=== PATIENT | female | born 1945 ===

== ENCOUNTER 2021-06-12 09:33 | Inpatient (IN) | payer OTHER ==
[~2021-06-12] VITALS: Ht 165.1 cm; Wt 56.9 kg
[2021-06-12] MEDS ORDERED: dilTIAZem 25 MG/5 ML VIAL IV ONE ×2 (11:10→11:15)
[2021-06-12] MEDS: dilTIAZem 125mg/125ml BAG KIT 100 ML IV SCH (11:45)
[2021-06-12 11:51] LABS: Albumin 2.6 g/dL (3.4-5.0); Calcium 7.2 mg/dL (8.5-10.1)
[2021-06-12 11:53] LABS: Basophils # (auto) 0.1 10 ^3/uL (0-0.2); Basophils % (auto) 1.7 % (0.0-2.0); Eosinophils # (auto) 0 10 ^3/uL (0-0.8); Eosinophils % (auto) 0.4 % (0.0-7.0); Hematocrit 46.6 % (36.0-46.0); Hemoglobin 15.6 g/dL (12.2-16.2); Lymphocytes # (auto) 0.7 10 ^3/uL (0.4-5.4); Lymphocytes % (auto) 14.9 % (10.0-50.0); Mean Corpuscular Hemoglobin 30.7 pg (28.0-32.0); Mean Corpuscular Hgb Conc. 33.4 g/dL (32.0-36.0); Mean Corpuscular Volume 91.8 fL (80.0-100.0); Monocytes # (auto) 0.5 10 ^3/uL (0-1.3); Monocytes % (auto) 11.9 % (0.0-12.0); Neutrophils # (auto) 3.2 10 ^3/uL (1.6-8.6); Neutrophils % (auto) 71.1 % (37.0-80.0); Nucleated Red Blood Cells % 0.2 %; Red Blood Cells 5.08 10^6/uL (4.0-5.20); Red Cell Distribution Width 13.8 % (11.8-14.3); White Blood Cell 4.5 10^3/uL (4.4-10.8)
[2021-06-12 11:56] LABS: BUN/Creatinine Ratio 16.7; Bilirubin, Total 0.4 mg/dL (0.2-1.0); Total Protein 6.5 g/dL (6.4-8.2)
[2021-06-12 12:22] LABS: Potassium 3.8 mmol/L (3.5-5.1)
[2021-06-12 16:08] LABS: Urine Bacteria FEW /hpf (None Seen); Urine Blood Negative /uL (Negative); Urine Hyaline Cast MOD /lpf (0 - 2); Urine Mucus FEW (None Seen); Urine Specific Gravity 1.011 (1.001-1.035); Urine WBC 3 /hpf (0 - 5)
[2021-06-12] MEDS ORDERED: MORPHINE SULFATE INJECTION 2 MG/ML SYRG IV PRN ×2 (16:30→17:00)
[2021-06-12] MEDS ORDERED: NITROGLYCERIN 0.4 MG SL TAB SL PRN ×2 (16:30→17:00)
[2021-06-12] MEDS ORDERED: CALCIUM W/VIT D (600MG/400IU) TAB PO ONE (16:45)
[2021-06-12] MEDS ORDERED: SODIUM CHLORIDE 0.9% 1,000 ML IV ONE (16:45)
[2021-06-12] MEDS ORDERED: IPRATROPIUM BROM 0.5 MG/2.5ML INH SOL NEB ONE (16:45)
[2021-06-12] MEDS ORDERED: ENOXAPARIN SOD 60 MG/0.6 ML SYRINGE SC ONE (16:45)
[2021-06-12] MEDS ORDERED: ACETAMINOPHEN 500 MG TAB PO PRN (17:00)
[2021-06-12] MEDS ORDERED: ALUM & MAG HYDROX-SIMETH LIQ(MAALOX) 30 ML PO PRN (17:00)
[2021-06-12] MEDS ORDERED: LORazepam 0.5 MG TAB PO PRN (17:00)
[2021-06-12] MEDS ORDERED: METOCLOPRAMIDE HCL 5MG/ml INJ 2ml VIAL IV PRN (17:00)
[2021-06-12] MEDS: SODIUM CHLORIDE 0.9% 1,000 ML IV SCH (17:59)
[2021-06-12] MEDS: ZINC SULFATE 220mg CAP or TAB PO SCH (18:00)
[2021-06-12] MEDS: DexAMETHasone SOD PHOS 10MG/1ML VIAL INJ IV SCH (18:00)
[2021-06-12] MEDS: CHOLECALCIFEROL (VITD3) 2,000 UNIT CAP/TAB PO SCH (18:00)
[2021-06-12] MEDS: CALCIUM W/VIT D (600MG/400IU) TAB PO SCH (18:00)
[2021-06-12] MEDS: ASCORBIC ACID 1,000 MG TAB PO SCH (18:00)
[2021-06-12] MEDS ORDERED: IPRATROPIUM BROM 0.5 MG/2.5ML INH SOL NEB SCH (18:00)
[2021-06-12 18:10] LABS: Amphetamine Screen, Urine NEGATIVE (NEGATIVE); Barbiturate Scree,Urine NEGATIVE (NEGATIVE); Benzodiazephine Screen, Urine NEGATIVE (NEGATIVE); Cannabinoid Screen, Urine NEGATIVE (NEGATIVE); Cocaine Screen, Urine NEGATIVE (NEGATIVE); Opiate Scree,Urine NEGATIVE (NEGATIVE); Phencyclidine Screen, Urine NEGATIVE (NEGATIVE)
[2021-06-12] MEDS: BUDESONIDE (INHALATION) 180 MCG IH IN SCH (22:00)
[2021-06-12 22:31] LABS: Potassium 3.7 mmol/L (3.5-5.1)
[2021-06-12 22:32] LABS: BUN/Creatinine Ratio 23.1; Calcium 7.9 mg/dL (8.5-10.1)
[2021-06-12 22:33] LABS: Albumin 2.7 g/dL (3.4-5.0); Bilirubin, Total 0.3 mg/dL (0.2-1.0); Total Protein 6.8 g/dL (6.4-8.2)
[2021-06-12] MEDS: ATORVASTATIN 20 MG TAB PO SCH (22:38)
[2021-06-12 22:46] LABS: CRP High Sensitivity 1.83 mg/dL (< 0.3)
[2021-06-12 22:51] LABS: Thyroid Stimulating Hormone 0.18 uIU/mL (0.358-3.74)
[2021-06-12] MEDS: DOXYCYCLINE 100MG/250ML 250 ML IV SCH (22:51)
[2021-06-13] MEDS: SODIUM CHLORIDE 0.9% 1,000 ML IV SCH ×2 (06:05→09:34)
[2021-06-13] MEDS: dilTIAZem 125mg/125ml BAG KIT 100 ML IV SCH (07:15)
[2021-06-13 07:54] LABS: Basophils # (auto) 0 10 ^3/uL (0-0.2); Basophils % (auto) 0.2 % (0.0-2.0); Eosinophils # (auto) 0 10 ^3/uL (0-0.8); Hematocrit 45.6 % (36.0-46.0); Hemoglobin 14.9 g/dL (12.2-16.2); Lymphocytes # (auto) 0.8 10 ^3/uL (0.4-5.4); Lymphocytes % (auto) 22.7 % (10.0-50.0); Mean Corpuscular Hgb Conc. 32.6 g/dL (32.0-36.0); Mean Corpuscular Volume 91.9 fL (80.0-100.0); Monocytes # (auto) 0.3 10 ^3/uL (0-1.3); Monocytes % (auto) 7.6 % (0.0-12.0); Neutrophils # (auto) 2.3 10 ^3/uL (1.6-8.6); Neutrophils % (auto) 69.5 % (37.0-80.0); Nucleated Red Blood Cells % 0.1 %; Red Blood Cells 4.96 10^6/uL (4.0-5.20); Red Cell Distribution Width 14.4 % (11.8-14.3); White Blood Cell 3.3 10^3/uL (4.4-10.8)
[2021-06-13] MEDS: CALCIUM W/VIT D (600MG/400IU) TAB PO SCH ×2 (08:00→11:53)
[2021-06-13 08:05] LABS: Potassium 3.8 mmol/L (3.5-5.1)
[2021-06-13 08:11] LABS: BUN/Creatinine Ratio 33.3; Bilirubin, Total 0.4 mg/dL (0.2-1.0); Phosphorus 3.6 mg/dL (2.5-4.90); Total Protein 5.7 g/dL (6.4-8.2); Uric Acid 4.5 mg/dL (2.6-6.0)
[2021-06-13 08:24] LABS: INR 0.99 (0.9-1.15); Partial Thromboplastin Time 36.5 sec (23.6-33.0)
[2021-06-13] MEDS: ASCORBIC ACID 1,000 MG TAB PO SCH (09:44)
[2021-06-13] MEDS: ZINC SULFATE 220mg CAP or TAB PO SCH (09:44)
[2021-06-13] MEDS: ASPirin 81 mg TAB PO SCH (09:44)
[2021-06-13] MEDS: DOXYCYCLINE 100MG/250ML 250 ML IV SCH ×2 (09:54→21:31)
[2021-06-13] MEDS: APIXABAN 5 MG TAB PO SCH ×2 (10:17→21:31)
[2021-06-13] MEDS: DexAMETHasone SOD PHOS 10MG/1ML VIAL INJ IV SCH (10:17)
[2021-06-13] MEDS: CHOLECALCIFEROL (VITD3) 2,000 UNIT CAP/TAB PO SCH (10:17)
[2021-06-13] MEDS: BUDESONIDE (INHALATION) 180 MCG IH IN SCH ×2 (11:23→22:22)
[2021-06-13] MEDS: ALBUTEROL SULF HFA 90MCG INH 200DOSE IN PRN ×2 (11:28→22:22)
[2021-06-13] MEDS: HYDROcodone-ACET 5/325MG TAB PO PRN ×2 (18:53→23:28)
[2021-06-13] MEDS: ATORVASTATIN 20 MG TAB PO SCH (21:31)
[2021-06-14] MEDS: dilTIAZem 125mg/125ml BAG KIT 100 ML IV SCH ×2 (00:31→23:15)
[2021-06-14] MEDS: HYDROcodone-ACET 5/325MG TAB PO PRN (05:51)
[2021-06-14] MEDS: BUDESONIDE (INHALATION) 180 MCG IH IN SCH ×2 (06:50→18:51)
[2021-06-14] MEDS: ALBUTEROL SULF HFA 90MCG INH 200DOSE IN PRN ×2 (06:56→18:51)
[2021-06-14] MEDS: CALCIUM W/VIT D (600MG/400IU) TAB PO SCH ×2 (08:00→19:10)
[2021-06-14] MEDS: SODIUM CHLORIDE 0.9% 1,000 ML IV SCH ×2 (08:35→21:20)
[2021-06-14] MEDS: ASPirin 81 mg TAB PO SCH (09:32)
[2021-06-14] MEDS: DOXYCYCLINE 100MG/250ML 250 ML IV SCH ×2 (09:32→22:17)
[2021-06-14] MEDS: DexAMETHasone SOD PHOS 10MG/1ML VIAL INJ IV SCH (09:32)
[2021-06-14] MEDS: APIXABAN 5 MG TAB PO SCH ×2 (09:33→22:18)
[2021-06-14] MEDS: ASCORBIC ACID 1,000 MG TAB PO SCH (09:33)
[2021-06-14] MEDS: CHOLECALCIFEROL (VITD3) 2,000 UNIT CAP/TAB PO SCH (09:33)
[2021-06-14] MEDS: ZINC SULFATE 220mg CAP or TAB PO SCH (09:33)
[2021-06-14] MEDS ORDERED: REMDESIVIR PER PHARMACY 0 ML IV SCH (10:45)
[2021-06-14] MEDS: METOPROLOL TARTRATE 25 MG TAB PO SCH ×2 (13:10→22:17)
[2021-06-14] MEDS ORDERED: REMDESIVIR 200 MG in NS 210ml LOADING DOSE ADULT IV ONE (15:00)
[2021-06-14] MEDS: MORPHINE SULFATE INJECTION 2 MG/ML SYRG IV PRN ×2 (16:30→22:18)
[2021-06-14 21:20] VITALS: BP 143/95
[2021-06-14] MEDS: ATORVASTATIN 20 MG TAB PO SCH (22:17)
[2021-06-15] MEDS ORDERED: LOSA-69 PO (04:22)
[2021-06-15] MEDS ORDERED: PERCOT PO (04:22)
[2021-06-15] MEDS ORDERED: DIPH25CA66 PO (04:22)
[2021-06-15] MEDS: MORPHINE SULFATE INJECTION 2 MG/ML SYRG IV PRN ×3 (05:22→18:54)
[2021-06-15 07:08] LABS: Potassium 4.2 mmol/L (3.5-5.1)
[2021-06-15 07:12] LABS: Albumin 2.6 g/dL (3.4-5.0); BUN/Creatinine Ratio 46.4; Calcium 8.8 mg/dL (8.5-10.1)
[2021-06-15 07:15] LABS: Bilirubin, Total 0.3 mg/dL (0.2-1.0); Total Protein 5.9 g/dL (6.4-8.2)
[2021-06-15 08:30] VITALS: BP 145/85
[2021-06-15] MEDS: BUDESONIDE (INHALATION) 180 MCG IH IN SCH ×2 (09:51→19:40)
[2021-06-15] MEDS: CHOLECALCIFEROL (VITD3) 2,000 UNIT CAP/TAB PO SCH (10:08)
[2021-06-15] MEDS: APIXABAN 5 MG TAB PO SCH ×2 (10:08→21:04)
[2021-06-15] MEDS: DexAMETHasone SOD PHOS 10MG/1ML VIAL INJ IV SCH (10:08)
[2021-06-15] MEDS: ASCORBIC ACID 1,000 MG TAB PO SCH (10:08)
[2021-06-15] MEDS: ZINC SULFATE 220mg CAP or TAB PO SCH (10:08)
[2021-06-15] MEDS: ASPirin 81 mg TAB PO SCH (10:08)
[2021-06-15] MEDS: CALCIUM W/VIT D (600MG/400IU) TAB PO SCH ×2 (10:08→17:26)
[2021-06-15] MEDS: DOXYCYCLINE 100MG/250ML 250 ML IV SCH (10:08)
[2021-06-15] MEDS: METOPROLOL TARTRATE 25 MG TAB PO SCH ×2 (10:09→21:06)
[2021-06-15] MEDS: SODIUM CHLORIDE 0.9% 1,000 ML IV SCH (11:25)
[2021-06-15 12:30] VITALS: BP 149/98
[2021-06-15 14:22] LABS: Folate (Folic Acid) 12.14 ng/mL (5.38-24)
[2021-06-15] MEDS: REMDESIVIR 100mg 100 MG in SODIUM CHL 0.9% 230 ML IV SCH (15:20)
[2021-06-15] MEDS: levoFLOXacin 500MG 100 ML IV SCH (16:28)
[2021-06-15 17:00] VITALS: BP 134/85
[2021-06-15] MEDS: dilTIAZem 125mg/125ml BAG KIT 100 ML IV SCH (19:15)
[2021-06-15] MEDS: ALBUTEROL SULF HFA 90MCG INH 200DOSE IN PRN (20:45)
[2021-06-15] MEDS: ATORVASTATIN 20 MG TAB PO SCH (21:05)
[2021-06-15 22:00] VITALS: BP 145/89
[2021-06-15] MEDS: HYDROcodone-ACET 5/325MG TAB PO PRN (22:47)
[2021-06-16] MEDS: SODIUM CHLORIDE 0.9% 1,000 ML IV SCH ×2 (01:15→14:05)
[2021-06-16] MEDS: MORPHINE SULFATE INJECTION 2 MG/ML SYRG IV PRN ×2 (01:40→20:14)
[2021-06-16 05:00] VITALS: BP 156/98
[2021-06-16] MEDS: BUDESONIDE (INHALATION) 180 MCG IH IN SCH ×2 (05:58→22:43)
[2021-06-16] MEDS: ALBUTEROL SULF HFA 90MCG INH 200DOSE IN PRN (05:59)
[2021-06-16 07:00] LABS: Basophils # (auto) 0 10 ^3/uL (0-0.2); Basophils % (auto) 0.2 % (0.0-2.0); Eosinophils # (auto) 0 10 ^3/uL (0-0.8); Hematocrit 42.9 % (36.0-46.0); Hemoglobin 14.7 g/dL (12.2-16.2); Lymphocytes # (auto) 0.6 10 ^3/uL (0.4-5.4); Lymphocytes % (auto) 5.8 % (10.0-50.0); Mean Corpuscular Hemoglobin 31.2 pg (28.0-32.0); Mean Corpuscular Hgb Conc. 34.2 g/dL (32.0-36.0); Mean Corpuscular Volume 91.1 fL (80.0-100.0); Monocytes % (auto) 9.3 % (0.0-12.0); Neutrophils # (auto) 8.9 10 ^3/uL (1.6-8.6); Neutrophils % (auto) 84.7 % (37.0-80.0); Nucleated Red Blood Cells % 0.1 %; Red Blood Cells 4.71 10^6/uL (4.0-5.20); Red Cell Distribution Width 13.8 % (11.8-14.3); White Blood Cell 10.5 10^3/uL (4.4-10.8)
[2021-06-16 07:22] LABS: Albumin 2.5 g/dL (3.4-5.0); Calcium 8.4 mg/dL (8.5-10.1); Potassium 4.5 mmol/L (3.5-5.1)
[2021-06-16 07:29] LABS: Bilirubin, Total 0.4 mg/dL (0.2-1.0); Total Protein 5.8 g/dL (6.4-8.2)
[2021-06-16 09:00] VITALS: BP 149/81
[2021-06-16] MEDS: levoFLOXacin 500MG 100 ML IV SCH (09:55)
[2021-06-16] MEDS: DexAMETHasone SOD PHOS 10MG/1ML VIAL INJ IV SCH (09:55)
[2021-06-16] MEDS: ASPirin 81 mg TAB PO SCH (09:55)
[2021-06-16] MEDS: METOPROLOL TARTRATE 25 MG TAB PO SCH ×2 (09:56→20:46)
[2021-06-16] MEDS: CALCIUM W/VIT D (600MG/400IU) TAB PO SCH ×2 (09:56→17:50)
[2021-06-16] MEDS: APIXABAN 5 MG TAB PO SCH ×2 (09:56→20:47)
[2021-06-16] MEDS: ASCORBIC ACID 1,000 MG TAB PO SCH (09:56)
[2021-06-16] MEDS: ZINC SULFATE 220mg CAP or TAB PO SCH (09:56)
[2021-06-16] MEDS: CHOLECALCIFEROL (VITD3) 2,000 UNIT CAP/TAB PO SCH (09:56)
[2021-06-16] MEDS: DOCUSATE SOD 100 MG CAP PO PRN (10:11)
[2021-06-16 13:00] VITALS: BP 140/82
[2021-06-16] MEDS: REMDESIVIR 100mg 100 MG in SODIUM CHL 0.9% 230 ML IV SCH (15:15)
[2021-06-16] MEDS: dilTIAZem 125mg/125ml BAG KIT 100 ML IV SCH (15:15)
[2021-06-16 17:00] VITALS: BP 139/92
[2021-06-16] MEDS: ATORVASTATIN 20 MG TAB PO SCH (20:46)
[2021-06-16 22:00] VITALS: BP 142/95
[2021-06-17] MEDS: ALBUTEROL SULF HFA 90MCG INH 200DOSE IN PRN ×2 (00:45→09:06)
[2021-06-17] MEDS: SODIUM CHLORIDE 0.9% 1,000 ML IV SCH (04:36)
[2021-06-17] MEDS: MORPHINE SULFATE INJECTION 2 MG/ML SYRG IV PRN ×4 (04:50→21:05)
[2021-06-17 05:48] VITALS: BP 150/89
[2021-06-17 06:49] LABS: Potassium 4.3 mmol/L (3.5-5.1)
[2021-06-17 06:56] LABS: Albumin 2.3 g/dL (3.4-5.0); BUN/Creatinine Ratio 42.9; Bilirubin, Total 0.3 mg/dL (0.2-1.0); Calcium 8.2 mg/dL (8.5-10.1); Total Protein 5.3 g/dL (6.4-8.2)
[2021-06-17] MEDS: CALCIUM W/VIT D (600MG/400IU) TAB PO SCH ×2 (08:00→17:43)
[2021-06-17] MEDS: BUDESONIDE (INHALATION) 180 MCG IH IN SCH ×2 (08:10→20:01)
[2021-06-17 08:50] VITALS: BP 128/72
[2021-06-17] MEDS: ASPirin 81 mg TAB PO SCH (09:32)
[2021-06-17] MEDS: levoFLOXacin 500MG 100 ML IV SCH (09:32)
[2021-06-17] MEDS: CHOLECALCIFEROL (VITD3) 2,000 UNIT CAP/TAB PO SCH (09:32)
[2021-06-17] MEDS: ZINC SULFATE 220mg CAP or TAB PO SCH (09:32)
[2021-06-17] MEDS: APIXABAN 5 MG TAB PO SCH ×2 (09:32→21:03)
[2021-06-17] MEDS: ASCORBIC ACID 1,000 MG TAB PO SCH (09:32)
[2021-06-17] MEDS: dilTIAZem 125mg/125ml BAG KIT 100 ML IV SCH (09:32)
[2021-06-17] MEDS: DexAMETHasone SOD PHOS 10MG/1ML VIAL INJ IV SCH (09:32)
[2021-06-17] MEDS: METOPROLOL TARTRATE 25 MG TAB PO SCH ×2 (09:33→21:04)
[2021-06-17] MEDS: DOCUSATE SOD 100 MG CAP PO PRN (11:01)
[2021-06-17 12:52] VITALS: BP 124/87
[2021-06-17] MEDS: REMDESIVIR 100mg 100 MG in SODIUM CHL 0.9% 230 ML IV SCH (15:14)
[2021-06-17 17:00] VITALS: BP 130/64
[2021-06-17] MEDS: ATORVASTATIN 20 MG TAB PO SCH (21:03)
[2021-06-17 22:00] VITALS: BP 113/63
[2021-06-18] MEDS: MORPHINE SULFATE INJECTION 2 MG/ML SYRG IV PRN ×2 (01:40→13:02)
[2021-06-18] MEDS: ALBUTEROL SULF HFA 90MCG INH 200DOSE IN PRN ×2 (01:59→08:39)
[2021-06-18 05:00] VITALS: BP 141/81
[2021-06-18] MEDS: DOCUSATE SOD 100 MG CAP PO PRN (05:42)
[2021-06-18 06:40] VITALS: BP 134/94
[2021-06-18] MEDS: dilTIAZem 125mg/125ml BAG KIT 100 ML IV SCH (07:15)
[2021-06-18] MEDS: BUDESONIDE (INHALATION) 180 MCG IH IN SCH (08:39)
[2021-06-18 09:00] VITALS: BP 145/87
[2021-06-18] MEDS: DexAMETHasone SOD PHOS 10MG/1ML VIAL INJ IV SCH (09:56)
[2021-06-18] MEDS: ZINC SULFATE 220mg CAP or TAB PO SCH (09:56)
[2021-06-18] MEDS: ASPirin 81 mg TAB PO SCH (09:56)
[2021-06-18] MEDS: CALCIUM W/VIT D (600MG/400IU) TAB PO SCH (09:56)
[2021-06-18] MEDS: APIXABAN 5 MG TAB PO SCH (09:56)
[2021-06-18] MEDS: levoFLOXacin 500MG 100 ML IV SCH (09:56)
[2021-06-18] MEDS: METOPROLOL TARTRATE 25 MG TAB PO SCH (10:06)
[2021-06-18] MEDS: CHOLECALCIFEROL (VITD3) 2,000 UNIT CAP/TAB PO SCH (10:06)
[2021-06-18] MEDS: ASCORBIC ACID 1,000 MG TAB PO SCH (10:06)
[2021-06-18] MEDS ORDERED: MET25T PO (10:19)
[2021-06-18] MEDS ORDERED: APIX5TAB PO (10:19)
[2021-06-18] MEDS ORDERED: LEVO500T31 PO (10:19)
[2021-06-18] MEDS ORDERED: SENNA 8.6 MG TAB PO SCH (10:30)
[2021-06-18] MEDS: LACTULOSE 20Gm/30ML SOLN PO SCH ×2 (11:17→13:02)
[2021-06-18] MEDS: REMDESIVIR 100mg 100 MG in SODIUM CHL 0.9% 230 ML IV SCH (14:55)
[2021-06-18 15:21] VITALS: BP 145/87
== END 2021-06-18 16:30 | disposition home health service (06) | DRG 177 ==
LOC: ER 09:33 → EDBD 09:33 → OVERFLOW 16:46 → TELE-EAST 06-14 21:10
PROVIDERS: ADMIT Hospitalist; ATTEND Internal Medicine
PROC: XW033E5 Introduction of Remdesivir Anti-infective into Peripheral Vein, Percutaneous Approach, New Technology Group 5 (ICD-10-PCS; principal; 2021-06-14)
DX: U07.1 COVID-19 (principal); J96.01 Acute respiratory failure with hypoxia; J12.82 Pneumonia due to coronavirus disease 2019; E87.2 Acidosis; N39.0 Urinary tract infection, site not specified; J44.0 Chronic obstructive pulmonary disease with (acute) lower respiratory infection; R62.7 Adult failure to thrive; E88.09 Other disorders of plasma-protein metabolism, not elsewhere classified; D72.819 Decreased white blood cell count, unspecified; I25.10 Atherosclerotic heart disease of native coronary artery without angina pectoris; B96.20 Unspecified Escherichia coli [E. coli] as the cause of diseases classified elsewhere; B96.5 Pseudomonas (aeruginosa) (mallei) (pseudomallei) as the cause of diseases classified elsewhere; E78.5 Hyperlipidemia, unspecified; F17.200 Nicotine dependence, unspecified, uncomplicated; I10 Essential (primary) hypertension; I48.91 Unspecified atrial fibrillation; R79.89 Other specified abnormal findings of blood chemistry; Z23 Encounter for immunization; Z79.01 Long term (current) use of anticoagulants; Z88.0 Allergy status to penicillin; Z88.2 Allergy status to sulfonamides; Z88.1 Allergy status to other antibiotic agents
CPT/HCPCS: 36415; 70450; 71045; 80053; 80307; 81001; 82306; 82607; 82728; 82746; 83036; 83605; 83615; 83735; 83880; 84100; 84443; 84484; 84550; 85025; 85379; 85610; 85730; 86141; 87040; 87086; 87088; 87186; 87426; 93005; 93306; 93886; 94640; 96374; 97110; 97116; 97163; 97530; 99291; G0378; J1100; J1956; J3490

== ENCOUNTER 2021-09-26 10:02 | Inpatient (IN) | payer OTHER ==
[~2021-09-26] VITALS: Ht 165.1 cm; Wt 65.5 kg
[~2021-09-26 10:02] MED LIST: APIX5TAB PO; DIPH25CA66 PO; LEVO500T31 PO; LOSA-69 PO; MET25T PO; PERCOT PO
[2021-09-26] MEDS ORDERED: HEPARIN SODIUM (PORCINE) 5000 UNITS/ML 1ML VIAL ONE (10:07)
[2021-09-26] MEDS ORDERED: HEPARIN SODIUM (PORCINE) 5000 UNITS/ML 1ML VIAL IV ONE (10:15)
[2021-09-26] MEDS ORDERED: fentaNYL CITRATE 100 MCG/2 ML VL ONE (10:24)
[2021-09-26] MEDS ORDERED: VERAPAMIL 2.5MG/ML INJ 2ML VIAL IV ONE (10:24)
[2021-09-26] MEDS ORDERED: ANGIOMAX 250 MG VIAL IV ONE (10:25)
[2021-09-26] MEDS ORDERED: SODIUM CHL 0.9% 50 ML ONE (10:25)
[2021-09-26] MEDS ORDERED: MIDAZOLAM HCL 2MG/2ML 2ml VIAL (1mg/ml) ONE (10:25)
[2021-09-26] MEDS ORDERED: ATROPINE SULF 1 MG/10ml SYR ONE (10:25)
[2021-09-26] MEDS ORDERED: IODIXANOL 320MG/ML 100ML BTL IV ONE ×2 (10:29→10:53)
[2021-09-26] MEDS ORDERED: LIDOCAINE 2%HCL (LOCAL ANESTH.) INJ 20ML MDV ONE (10:29)
[2021-09-26] MEDS ORDERED: ONDANSETRON HCL 4 MG/2 ML VIAL IV ONE (10:30)
[2021-09-26] MEDS ORDERED: MORPHINE SULFATE 4 MG/ML SYR/VIAL IV ONE (10:30)
[2021-09-26] MEDS ORDERED: METOPROLOL TARTRATE 50 MG TAB PO ONE (10:45)
[2021-09-26] MEDS ORDERED: NITROGLYCERIN 0.4 MG SL TAB SL PRN ×2 (10:45→12:00)
[2021-09-26 10:47] LABS: Basophils # (auto) 0.1 10 ^3/uL (0-0.2); Basophils % (auto) 1.1 % (0.0-2.0); Eosinophils # (auto) 0.3 10 ^3/uL (0-0.8); Hematocrit 43.5 % (36.0-46.0); Hemoglobin 14.3 g/dL (12.2-16.2); Lymphocytes # (auto) 2.2 10 ^3/uL (0.4-5.4); Mean Corpuscular Hemoglobin 30.6 pg (28.0-32.0); Mean Corpuscular Hgb Conc. 32.9 g/dL (32.0-36.0); Monocytes # (auto) 0.7 10 ^3/uL (0-1.3); Monocytes % (auto) 8.6 % (0.0-12.0); Neutrophils # (auto) 4.5 10 ^3/uL (1.6-8.6); Neutrophils % (auto) 58.3 % (37.0-80.0); Nucleated Red Blood Cells % 0.1 %; Red Blood Cells 4.68 10^6/uL (4.0-5.20); Red Cell Distribution Width 14.8 % (11.8-14.3); White Blood Cell 7.7 10^3/uL (4.4-10.8)
[2021-09-26 10:57] LABS: Albumin 3.5 g/dL (3.4-5.0); Calcium 9.4 mg/dL (8.5-10.1); Potassium 4.4 mmol/L (3.5-5.1)
[2021-09-26 11:00] LABS: Bilirubin, Total 0.3 mg/dL (0.2-1.0); Total Protein 7.6 g/dL (6.4-8.2)
[2021-09-26] MEDS ORDERED: ONDANSETRON HCL 4 MG/2 ML VIAL ONE (11:06)
[2021-09-26] MEDS ORDERED: TICAGRELOR 90 MG TAB ONE (11:19)
[2021-09-26 12:00] VITALS: BP 117/75
[2021-09-26 12:01] LABS: Urine Bacteria FEW /hpf (None Seen); Urine Blood Negative /uL (Negative); Urine WBC 2 /hpf (0 - 5)
[2021-09-26 12:12] LABS: INR 0.99 (0.9-1.15); Partial Thromboplastin Time 24.9 sec (23.6-33.0)
[2021-09-26] MEDS ORDERED: DIGOXIN (250MCG/ML) 2 ML AMPULE IV ONE (13:45)
[2021-09-26] MEDS ORDERED: AMIODARONE HCL 150 MG in D5W 5% 100 ML IV ONE (13:45)
[2021-09-26] MEDS ORDERED: AMIODARONE 450mg/250ml AE 250 ML IV SCH (14:00)
[2021-09-26 19:00] VITALS: BP 114/46
[2021-09-26 20:00] VITALS: BP 117/47
[2021-09-26] MEDS: AMIODARONE 450mg/250ml AE 250 ML IV SCH (20:00)
[2021-09-26] MEDS: ATORVASTATIN 20 MG TAB PO SCH (20:46)
[2021-09-26] MEDS: MORPHINE SULFATE INJECTION 2 MG/ML SYRG IV PRN (20:57)
[2021-09-26 21:00] VITALS: BP 109/49
[2021-09-26] MEDS ORDERED: CLOPIDOGREL BISULFATE 75 MG TAB PO ONE (21:00)
[2021-09-26 22:00] VITALS: BP 100/42
[2021-09-26 23:00] VITALS: BP 111/94
[2021-09-27] VITALS (17 sets, daily range): BP systolic 95–135; BP diastolic 37–73
[2021-09-27] MEDS: MORPHINE SULFATE INJECTION 2 MG/ML SYRG IV PRN (01:32)
[2021-09-27 05:19] LABS: Basophils # (auto) 0 10 ^3/uL (0-0.2); Basophils % (auto) 0.5 % (0.0-2.0); Eosinophils # (auto) 0.1 10 ^3/uL (0-0.8); Eosinophils % (auto) 1.5 % (0.0-7.0); Hematocrit 39.2 % (36.0-46.0); Hemoglobin 12.9 g/dL (12.2-16.2); Lymphocytes # (auto) 1.4 10 ^3/uL (0.4-5.4); Lymphocytes % (auto) 16.9 % (10.0-50.0); Mean Corpuscular Hemoglobin 30.5 pg (28.0-32.0); Mean Corpuscular Hgb Conc. 32.8 g/dL (32.0-36.0); Mean Corpuscular Volume 93.1 fL (80.0-100.0); Monocytes # (auto) 0.9 10 ^3/uL (0-1.3); Monocytes % (auto) 11.1 % (0.0-12.0); Neutrophils # (auto) 5.8 10 ^3/uL (1.6-8.6); Nucleated Red Blood Cells % 0.1 %; Red Blood Cells 4.21 10^6/uL (4.0-5.20); Red Cell Distribution Width 14.8 % (11.8-14.3); White Blood Cell 8.3 10^3/uL (4.4-10.8)
[2021-09-27 05:25] LABS: INR 1.02 (0.9-1.15); Partial Thromboplastin Time 26.5 sec (23.6-33.0)
[2021-09-27 05:29] LABS: Calcium 8.6 mg/dL (8.5-10.1); Magnesium 2.2 mg/dL (1.6-2.6); Potassium 4.3 mmol/L (3.5-5.1)
[2021-09-27] MEDS: CLOPIDOGREL BISULFATE 75 MG TAB PO SCH (09:36)
[2021-09-27] MEDS ORDERED: ASPirin 81 mg TAB PO SCH ×2 (10:00→11:15)
[2021-09-27] MEDS: AMIODARONE 450mg/250ml AE 250 ML IV SCH (11:00)
[2021-09-27] MEDS ORDERED: ACETAMINOPHEN 325 MG TAB PO PRN (12:00)
[2021-09-27] MEDS: OXYCODONE W/ ACETAMINOPHEN 5/325MG TABLET PO PRN ×2 (12:27→21:04)
[2021-09-27] MEDS: ATORVASTATIN 20 MG TAB PO SCH (21:04)
[2021-09-28] VITALS (45 sets, daily range): BP systolic 61–257; BP diastolic 13–212
[2021-09-28] MEDS ORDERED: AMIODARONE HCL 150 MG in D5W 5% 100 ML IV ONE (02:15)
[2021-09-28] MEDS ORDERED: AMIODARONE HCL (50 MG/ ML) 3 ML VIAL IV ONE (02:15)
[2021-09-28] MEDS ORDERED: AMIODARONE 450mg/250ml AE 250 ML IV SCH (02:30)
[2021-09-28] MEDS: OXYCODONE W/ ACETAMINOPHEN 5/325MG TABLET PO PRN (03:41)
[2021-09-28] MEDS: AMIODARONE 450mg/250ml AE 250 ML IV SCH ×2 (08:30→23:30)
[2021-09-28] MEDS ORDERED: ETOMIDATE (2MG/ML) 20ML VIAL IV ONE (09:18)
[2021-09-28] MEDS ORDERED: AMIODARONE 450mg/250ml AE 250 ML IV ONE (09:19)
[2021-09-28] MEDS ORDERED: NOREPINEPHRINE 8 MG/250ML KIT 250 ML IV ONE (09:49)
[2021-09-28] MEDS ORDERED: fentaNYL Drip 2500mCg/250mlNS 250 ML IV ONE (09:49)
[2021-09-28] MEDS: CLOPIDOGREL BISULFATE 75 MG TAB PO SCH (10:00)
[2021-09-28] MEDS ORDERED: EPINEPHrine HCL 1 MG/10 ML SYRG ONE (10:02)
[2021-09-28] MEDS ORDERED: ATROPINE SULF 1 MG/10ml SYR ONE (10:02)
[2021-09-28] MEDS ORDERED: HEPARIN IN NS 1000Units/500mL 1,500 ML ONE (10:05)
[2021-09-28] MEDS ORDERED: LIDOCAINE 2%HCL (LOCAL ANESTH.) INJ 10ml MDV ONE (10:05)
[2021-09-28] MEDS ORDERED: IODIXANOL 320MG/ML 100ML BTL IV ONE ×2 (10:05→11:51)
[2021-09-28] MEDS ORDERED: MIDAZOLAM DRIP 50 mg/50mL 50 ML IV SCH (10:15)
[2021-09-28] MEDS ORDERED: PROPOFOL 100 ML IV SCH (10:15)
[2021-09-28] MEDS ORDERED: NOREPINEPHRINE 8 MG/250ML KIT 250 ML IV SCH (10:15)
[2021-09-28] MEDS ORDERED: fentaNYL Drip 2500mCg/250mlNS 250 ML IV SCH (10:15)
[2021-09-28] MEDS ORDERED: PROPOFOL 0 ML IV ONE (10:17)
[2021-09-28] MEDS ORDERED: MIDAZOLAM DRIP 50 mg/50mL 50 ML IV ONE (10:17)
[2021-09-28] MEDS ORDERED: diphenhdrAMINE HCL 50 MG/1 ML VL ONE (10:18)
[2021-09-28] MEDS ORDERED: methylPREDNISolone SOD SUCC 125 MG/2 ML VL ONE (10:18)
[2021-09-28] MEDS ORDERED: FAMOTIDINE (10MG/ML) 2ML VL IV ONE (10:19)
[2021-09-28] MEDS ORDERED: APIXABAN 2.5 MG TAB PO SCH (10:20)
[2021-09-28 10:35] LABS: Albumin 2.2 g/dL (3.4-5.0); BUN/Creatinine Ratio 15.8; Magnesium 2.3 mg/dL (1.6-2.6); Potassium 3.8 mmol/L (3.5-5.1)
[2021-09-28 10:44] LABS: Bilirubin, Total 0.3 mg/dL (0.2-1.0); Total Protein 5.3 g/dL (6.4-8.2)
[2021-09-28 10:57] LABS: Hemoglobin 13.7 g/dL (12.2-16.2); Mean Corpuscular Hemoglobin 30.5 pg (28.0-32.0); Mean Corpuscular Hgb Conc. 31.7 g/dL (32.0-36.0); Mean Corpuscular Volume 96.1 fL (80.0-100.0); Red Blood Cells 4.48 10^6/uL (4.0-5.20); White Blood Cell 7.7 10^3/uL (4.4-10.8)
[2021-09-28 11:02] LABS: Band Neutrophils % (manual) 0; Blast Cells 0; Eosinophils % (manual) 0 (0-7); Metamyelocytes % 0; Promyelocytes % 0
[2021-09-28] MEDS ORDERED: PHENYLEPHRINE IV 250 ML IV ONE ×2 (11:05→20:17)
[2021-09-28] MEDS ORDERED: PHENYLEPHRINE IV 250 ML IV SCH (11:15)
[2021-09-28] MEDS ORDERED: ANGIOMAX 250 MG VIAL IV ONE ×2 (11:30→12:41)
[2021-09-28] MEDS ORDERED: SODIUM CHL 0.9% 50 ML ONE ×2 (11:30→12:41)
[2021-09-28] MEDS ORDERED: CLOPIDOGREL 300 MG TAB ONE (11:55)
[2021-09-28] MEDS ORDERED: ASPirin 81 mg TAB ONE (11:56)
[2021-09-28 12:01] LABS: INR 1.18 (0.9-1.15); Partial Thromboplastin Time 26.8 sec (23.6-33.0)
[2021-09-28] MEDS ORDERED: EPTIFIBATIDE DRIP(0.75MG/ML) 0 ML IV ONE (12:11)
[2021-09-28 13:43] LABS: Basophils % (manual) 1 (0.0-2.0); Lymphocytes % (manual) 57 (10.0-50.0); Monocytes % (manual) 1 (0-12); Myelocytes % 1; Reactive Lymphocytes 17
[2021-09-28] MEDS ORDERED: PANTOPRAZOLE 40 MG/10 ML VIAL INJ IV ONE (16:00)
[2021-09-28] MEDS ORDERED: SODIUM CHLORIDE 0.9% 1,000 ML IV ONE (16:15)
[2021-09-28] MEDS ORDERED: SOD CHL 0.45% 1,000 ML IV SCH ×2 (16:15→17:30)
[2021-09-28] MEDS ORDERED: FUROSEMIDE 40 MG/4 ML VIAL IV ONE (17:00)
[2021-09-28] MEDS ORDERED: SODIUM BICARBONATE 8.4 % INJ 50ML VIAL IV ONE ×3 (17:00→23:00)
[2021-09-28] MEDS ORDERED: EPTIFIBATIDE DRIP(0.75MG/ML) 100 ML IV ONE (18:00)
[2021-09-28] MEDS ORDERED: SODIUM BICARBONATE 8.4% INJ 50ML SYRINGE ONE ×2 (19:24→23:20)
[2021-09-28] MEDS ORDERED: PHENYLEPHRINE INJ 80 MG in SODIUM CHL 0.9% 242 ML IV SCH (19:30)
[2021-09-28] MEDS ORDERED: SODIUM BICARBONATE 50ML VIAL 100 ML in D5W 5% 1,000 ML IV SCH (19:30)
[2021-09-28] MEDS ORDERED: NOREPINEPHRINE BITARTRATE 32 MG in SODIUM CHL 0.9% 218 ML IV SCH (19:30)
[2021-09-28] MEDS ORDERED: VASOPRESSIN 50 UNITS in D5W 5% 247.5 ML IV SCH (19:45)
[2021-09-28 20:27] LABS: Basophils # (auto) 0 10 ^3/uL (0-0.2); Basophils % (auto) 0.2 % (0.0-2.0); Eosinophils # (auto) 0 10 ^3/uL (0-0.8); Hematocrit 32.9 % (36.0-46.0); Hemoglobin 10.7 g/dL (12.2-16.2); Lymphocytes % (auto) 6.3 % (10.0-50.0); Mean Corpuscular Hemoglobin 30.5 pg (28.0-32.0); Mean Corpuscular Hgb Conc. 32.4 g/dL (32.0-36.0); Mean Corpuscular Volume 94.1 fL (80.0-100.0); Monocytes # (auto) 1.5 10 ^3/uL (0-1.3); Monocytes % (auto) 9.4 % (0.0-12.0); Neutrophils # (auto) 13.1 10 ^3/uL (1.6-8.6); Neutrophils % (auto) 84.1 % (37.0-80.0); Nucleated Red Blood Cells % 0.1 %; Red Blood Cells 3.49 10^6/uL (4.0-5.20); Red Cell Distribution Width 14.4 % (11.8-14.3); White Blood Cell 15.6 10^3/uL (4.4-10.8)
[2021-09-28] MEDS ORDERED: BUMETANIDE 2.5mg/10ml (0.25 mg/ml) INJ IV ONE (21:00)
[2021-09-28] MEDS: ATORVASTATIN 20 MG TAB PO SCH (22:35)
[2021-09-28] MEDS ORDERED: SODIUM BICARBONATE 50ML VIAL 150 ML in D5W 5% 1,000 ML IV SCH (23:00)
[2021-09-29] VITALS (42 sets, daily range): BP systolic 7–157; BP diastolic 0–69
[2021-09-29] MEDS ORDERED: SODIUM BICARBONATE 8.4 % INJ 50ML VIAL IV ONE ×3 (02:00→05:44)
[2021-09-29] MEDS ORDERED: SODIUM BICARBONATE 8.4% INJ 50ML SYRINGE ONE (02:02)
[2021-09-29 04:10] LABS: Basophils # (auto) 0.1 10 ^3/uL (0-0.2); Basophils % (auto) 0.3 % (0.0-2.0); Eosinophils # (auto) 0 10 ^3/uL (0-0.8); Eosinophils % (auto) 0.2 % (0.0-7.0); Hematocrit 30.5 % (36.0-46.0); Hemoglobin 9.8 g/dL (12.2-16.2); Lymphocytes # (auto) 1.4 10 ^3/uL (0.4-5.4); Lymphocytes % (auto) 7.7 % (10.0-50.0); Mean Corpuscular Hgb Conc. 32.1 g/dL (32.0-36.0); Mean Corpuscular Volume 96.6 fL (80.0-100.0); Monocytes # (auto) 0.8 10 ^3/uL (0-1.3); Monocytes % (auto) 4.5 % (0.0-12.0); Neutrophils # (auto) 15.6 10 ^3/uL (1.6-8.6); Neutrophils % (auto) 87.3 % (37.0-80.0); Nucleated Red Blood Cells % 0.2 %; Red Blood Cells 3.16 10^6/uL (4.0-5.20); Red Cell Distribution Width 14.6 % (11.8-14.3); White Blood Cell 17.8 10^3/uL (4.4-10.8)
[2021-09-29 05:04] LABS: BUN/Creatinine Ratio 14.3; Potassium 4.3 mmol/L (3.5-5.1)
[2021-09-29] MEDS ORDERED: AMIODARONE HCL (50 MG/ ML) 3 ML VIAL IV ONE (05:55)
[2021-09-29] MEDS ORDERED: BUMETANIDE 2.5mg/10ml (0.25 mg/ml) INJ IV ONE (06:00)
[2021-09-29] MEDS ORDERED: AMIODARONE 450mg/250ml AE 250 ML IV SCH ×2 (06:00→12:00)
[2021-09-29] MEDS ORDERED: DIGOXIN (250MCG/ML) 2 ML AMPULE IV ONE (06:00)
[2021-09-29] MEDS ORDERED: AMIODARONE HCL 150 MG in D5W 5% 100 ML IV ONE (06:00)
[2021-09-29] MEDS ORDERED: DIGOXIN (250MCG/ML) 2 ML AMPULE ONE (06:12)
[2021-09-29] MEDS ORDERED: EPINEPHrine HCL 250 ML IV SCH (06:30)
[2021-09-29] MEDS ORDERED: ASPirin 81 mg TAB PO SCH (10:00)
[2021-09-29] MEDS ORDERED: CLOPIDOGREL BISULFATE 75 MG TAB PO SCH (10:00)
[2021-09-29] MEDS ORDERED: PANTOPRAZOLE 40 MG/10 ML VIAL INJ IV SCH (10:00)
== END 2021-09-29 17:22 | DRG 246 ==
LOC: EDBD 10:02 → ER 10:02 → TELE 10:39 → DOU IN ICU 13:50 → TELE-CENTR 09-27 16:53 → ICU WEST 09-28 10:07
PROVIDERS: ADMIT Registered Nurse; ATTEND Internal Medicine
PROC: 027036Z Dilation of Coronary Artery, One Artery with Three Drug-eluting Intraluminal Devices, Percutaneous Approach (ICD-10-PCS; principal; 2021-09-26)
PROC: 4A023N7 Measurement of Cardiac Sampling and Pressure, Left Heart, Percutaneous Approach (ICD-10-PCS; 2021-09-26)
PROC: B211YZZ Fluoroscopy of Multiple Coronary Arteries using Other Contrast (ICD-10-PCS; 2021-09-26)
PROC: B215YZZ Fluoroscopy of Left Heart using Other Contrast (ICD-10-PCS; 2021-09-26)
PROC: 06HM33Z Insertion of Infusion Device into Right Femoral Vein, Percutaneous Approach (ICD-10-PCS; 2021-09-28)
PROC: B54BZZA Ultrasonography of Right Lower Extremity Veins, Guidance (ICD-10-PCS; 2021-09-28)
PROC: 027036Z Dilation of Coronary Artery, One Artery with Three Drug-eluting Intraluminal Devices, Percutaneous Approach (ICD-10-PCS; 2021-09-28)
PROC: 04HY32Z Insertion of Monitoring Device into Lower Artery, Percutaneous Approach (ICD-10-PCS; 2021-09-28)
PROC: 4A133B1 Monitoring of Arterial Pressure, Peripheral, Percutaneous Approach (ICD-10-PCS; 2021-09-28)
PROC: 4A133J1 Monitoring of Arterial Pulse, Peripheral, Percutaneous Approach (ICD-10-PCS; 2021-09-28)
PROC: 5A1935Z Respiratory Ventilation, Less than 24 Consecutive Hours (ICD-10-PCS; 2021-09-28)
PROC: 0BH17EZ Insertion of Endotracheal Airway into Trachea, Via Natural or Artificial Opening (ICD-10-PCS; 2021-09-28)
PROC: 0W9930Z Drainage of Right Pleural Cavity with Drainage Device, Percutaneous Approach (ICD-10-PCS; 2021-09-28)
PROC: 5A12012 Performance of Cardiac Output, Single, Manual (ICD-10-PCS; 2021-09-28)
PROC: B211YZZ Fluoroscopy of Multiple Coronary Arteries using Other Contrast (ICD-10-PCS; 2021-09-28)
PROC: B41CYZZ Fluoroscopy of Pelvic Arteries using Other Contrast (ICD-10-PCS; 2021-09-28)
DX: I21.19 ST elevation (STEMI) myocardial infarction involving other coronary artery of inferior wall (principal); G93.41 Metabolic encephalopathy; J96.01 Acute respiratory failure with hypoxia; J98.11 Atelectasis; E87.1 Hypo-osmolality and hyponatremia; G93.1 Anoxic brain damage, not elsewhere classified; J93.9 Pneumothorax, unspecified; N17.9 Acute kidney failure, unspecified; E87.2 Acidosis; Z66 Do not resuscitate; I46.9 Cardiac arrest, cause unspecified; I10 Essential (primary) hypertension; Z20.822 Contact with and (suspected) exposure to COVID-19; R79.89 Other specified abnormal findings of blood chemistry; I49.01 Ventricular fibrillation; I48.91 Unspecified atrial fibrillation; R57.0 Cardiogenic shock; Z79.01 Long term (current) use of anticoagulants; D64.9 Anemia, unspecified; I25.10 Atherosclerotic heart disease of native coronary artery without angina pectoris; K21.9 Gastro-esophageal reflux disease without esophagitis; Z79.02 Long term (current) use of antithrombotics/antiplatelets; Z79.899 Other long term (current) drug therapy; Z87.891 Personal history of nicotine dependence; Z88.1 Allergy status to other antibiotic agents; Z88.0 Allergy status to penicillin; Z88.2 Allergy status to sulfonamides; Z91.018 Allergy to other foods; Z88.8 Allergy status to other drugs, medicaments and biological substances
CPT/HCPCS: 36415; 36600; 71045; 80048; 80053; 80061; 81001; 82805; 83735; 83880; 84484; 85007; 85025; 85027; 85610; 85730; 86850; 86900; 86901; 87070; 87081; 87205; 93005; 93306; 94003; 96374; 99152; 99153; 99291; C1874; C1887; C9113; G0378; J0171; J2001; J2250; J2405; J2704; J3490; J7060; Q9967